=== PATIENT | female | born 1945 | race Caucasian/White ===

== ENCOUNTER → 2016-07-29 | Outpatient (CLI) | payer MEDICARE, BC ==
[~2016-07-29] MED LIST: ANDRODERM2.5 MG/24; ASPIRIN E.C. 8181 MG PO; CIPRO 250MG TA250 MG PO; LORTAB 5/500 501 TAB PO; PREMARIN 0.60.625 MG PO; PROGESTERONE AL1 CRE TP; PROTONIX 40MG T40 MG PO; SYNTHROID0.2 MG/TAB; ZOCOR 40MG40 MG PO
== END ==
LOC: MC.RAD 09:50
DX: Z12.31 Encounter for screening mammogram for malignant neoplasm of breast (principal)

== ENCOUNTER → 2017-10-06 | Outpatient (CLI) | payer MEDICARE, BC | LOC: MC.RAD 09:58 | DX: Z12.31 Encounter for screening mammogram for malignant neoplasm of breast (principal) ==

== ENCOUNTER 2018-06-21 10:34 | Day surgery (SDC) | payer MEDICARE, BC ==
[~2018-06-21] VITALS: Ht 160 cm; Wt 81.7 kg
[2018-06-21] MEDS ORDERED: SYNTHROID0.075 MG/T PO (11:06)
[2018-06-21] MEDS ORDERED: PRAVACHOL 20MG20 MG PO (11:06)
[2018-06-21] MEDS ORDERED: VESICARE10 MG PO (11:07)
[2018-06-21] MEDS ORDERED: CEPHALEXIN500 M1 PO (11:07)
[2018-06-21] MEDS ORDERED: CENTRUM SILVER1 TAB PO (11:08)
[2018-06-21] MEDS ORDERED: MASON NATURAL2000 IU PO (11:08)
[2018-06-21] MEDS ORDERED: CALCIUM 600MG+D1 TAB PO (11:08)
[2018-06-21] MEDS ORDERED: TURMERIC500 MG PO (11:09)
[2018-06-21 11:10] VITALS: BP 152/69; PULSE 64; TEMP 97.7
[2018-06-21] MEDS ORDERED: D MANNOSE PO (11:10)
[2018-06-21 15:20] VITALS: BP 143/66; PULSE 91; TEMP 98.3
[2018-06-21 15:35] VITALS: BP 140/61; PULSE 84
[2018-06-21 15:50] VITALS: BP 127/59; PULSE 94
== END 2018-06-21 16:20 | disposition home or self-care (01) ==
LOC: SDCO 10:34
DX: T82.111A Breakdown (mechanical) of cardiac pulse generator (battery), initial encounter (principal); N39.41 Urge incontinence; R35.0 Frequency of micturition; E78.00 Pure hypercholesterolemia, unspecified; K58.9 Irritable bowel syndrome, unspecified; J30.89 Other allergic rhinitis; J30.1 Allergic rhinitis due to pollen; M19.90 Unspecified osteoarthritis, unspecified site; Z90.49 Acquired absence of other specified parts of digestive tract; Z90.710 Acquired absence of both cervix and uterus; Z87.442 Personal history of urinary calculi; Z87.440 Personal history of urinary (tract) infections; Z82.3 Family history of stroke
CPT/HCPCS: C1767; C1787; C1894; J0690; J1100; J1885; J2250; J2405; J2704; J3010; J7120

== ENCOUNTER → 2018-12-07 | Outpatient (CLI) | payer MEDICARE, BC ==
[~2018-12-07] MED LIST changes: +CALCIUM 600MG+D1 TAB PO; +CENTRUM SILVER1 TAB PO; +CEPHALEXIN500 M1 PO; +D MANNOSE PO; +MASON NATURAL2000 IU PO; +PRAVACHOL 20MG20 MG PO; +SYNTHROID0.075 MG/T PO; +TURMERIC500 MG PO; +VESICARE10 MG PO
== END ==
LOC: MC.RAD 12:19
DX: Z12.31 Encounter for screening mammogram for malignant neoplasm of breast (principal)

== ENCOUNTER → 2019-12-20 | Outpatient (CLI) | payer MEDICARE | LOC: MC.RAD 09:37 | DX: Z12.31 Encounter for screening mammogram for malignant neoplasm of breast (principal) ==

== ENCOUNTER → 2024-01-13 | Outpatient (CLI) | payer MEDICARE ==
[~2024-01-13] MED LIST changes: +ZESTRIL 10MG10 MG PO
== END ==
LOC: MC.RAD 11:32
DX: Z12.31 Encounter for screening mammogram for malignant neoplasm of breast (principal)